=== PATIENT | female | born 1965 | race Caucasian/White ===

== ENCOUNTER → 2018-01-15 | Outpatient (CLI) | payer OTHER ==
[~2018-01-15] MED LIST: AMOX875T PO; NUTRTAB40 PO; SULF800T23 PO
--- NOTE | 2018-01-15 13:04 | MAMMOGRAPHY REPORT ---
THIS REPORT HAS BEEN AMENDED. BILATERAL DIGITAL SCREENING MAMMOGRAM TOMOSYNTHESIS WITH CAD: 01/15/2018 CLINICAL HISTORY: Routine screening. Patient has no complaints. TECHNIQUE: Breast tomosynthesis in addition to standard 2D mammography was performed. Current study was also evaluated with a Computer Aided Detection (CAD) system. COMPARISON: No prior exams were available for comparison. BREAST COMPOSITION: The tissue of both breasts is extremely dense, which lowers the sensitivity of m ammography. FINDINGS: There is a grouping of very faint amorphous microcalcifications in the anterior subareolar right breast, for which comparison to prior outside mammograms is needed to assess stability. If th e outside exams are not obtained in a timely manner, additional spot magnification views are recommen ded. There are benign rim calcifications in the anterior left breast. No other suspicious mass, architectu ral distortion or cluster of microcalcifications is seen. IMPRESSION: ACR BI-RADS CATEGORY 0: INCOMPLETE EVALUATION: NEED ADDITIONAL IMAGING EVALUATION The very faint grouping of amorphous microcalcifications in the anterior, subareolar right breast nee ds comparison to prior outside mammograms to assess stability. If the outside exams are not obtained in a timely manner, additional spot magnification views are recommended. The patient will be called to schedule an appointment. Approximately 10% of breast cancers are not detected with mammography. A negative mammographic report should not delay biopsy if a clinically suggestive mass is present. Magi Keita M.D. ay/:01/15/2018 09:20:53 Drying Machine Receiver: Moriah COOLEY(Bailey)(M), [facility] letter sent: Need Priors 0 BI-RADS Code: ACR BI-RADS Category 0: Incomplete Evaluation: Need Additional Imaging Evaluation AMENDMENT: 01/23/2018 Magi Keita M.D. Prior outside mammograms from [facility] dated 12/09/2013, 01/04/2015, 01/10/2016 and 01/12/20 17 became available for review. The glandular pattern is similar to the prior outside mammograms. The faint grouping of amorphous mi crocalcifications in the anterior subareolar right breast is increasingly conspicuous comparing to th e prior outside mammograms. Therefore, additional spot magnification views are recommended. No other new suspicious masses, calcifications, areas of distortion or asymmetries are identified. Amended BI-RADS: ACR BI-RADS Category 0: Incomplete Evaluation: Need Additional Imaging Evaluation letter sent: Addl Imaging 0
== END | disposition home or self-care (01) ==
LOC: C.MAMM 07:09
PROVIDERS: ATTEND Physician Assistant Medical
DX: Z12.31 Encounter for screening mammogram for malignant neoplasm of breast (principal); R92.0 Mammographic microcalcification found on diagnostic imaging of breast

== ENCOUNTER → 2018-02-07 | Outpatient (CLI) | payer OTHER ==
--- NOTE | 2018-02-07 14:55 | MAMMOGRAPHY REPORT ---
UNILATERAL RIGHT DIGITAL DIAGNOSTIC MAMMOGRAM: 02/07/2018 CLINICAL HISTORY: Callback from screening mammogram for right breast calcifications. TECHNIQUE: Spot magnification right cc and ML views were obtained. COMPARISON: Comparison is made to exam dated: 01/15/2018 mammogram - [facility]. Prior outside mammograms dated 2016, 2015, 2014, 2013 from [facility]. BREAST COMPOSITION: The tissue of the right breast is extremely dense, which lowers the sensitivity of mammography. FINDINGS: Spot magnification views demonstrate a very faint 7 mm group of punctate calcifications wi thin the right subareolar breast. When compared to prior exams, the calcifications were likely prese nt on the 2015 exam and may have also been present on the December 2014 exam on the MLO view, are are li lima more conspicuous due to differences in mammographic technique. The calcifications are probably benign given the morphology and probable stability. IMPRESSION: ACR-BI-RADS CATEGORY 3: PROBABLY BENIGN Small 7 mm group of faint punctate calcifications within the right subareolar breast are likely prese nt on the 2015 and 2014 exams and are likely more conspicuous due to technical differences. Recommen d follow-up diagnostic mammograms of the right breast in 6 months to confirm stability on spot magnif ication views. The patient has been verbally notified of the results. Approximately 10% of breast cancers are not detected with mammography. A negative mammographic report should not delay biopsy if a clinically suggestive mass is present. Susan Lo M.D. /:02/07/2018 09:18:23 Public Relations Coordinator: Moriah Cooper, [facility] letter sent: Follow Up Recommended 3 BI-RADS Code: ACR-BI-RADS Category 3: Probably Benign
== END | disposition home or self-care (01) ==
LOC: C.MAMM 08:15
PROVIDERS: ATTEND Physician Assistant Medical
DX: R92.1 Mammographic calcification found on diagnostic imaging of breast (principal)